=== PATIENT | female | born 1985 | race Caucasian/White ===

== ENCOUNTER 2018-01-07 19:56 | Inpatient (IN) | payer OTHER ==
[~2018-01-07] VITALS: Ht 165.1 cm; Wt 63.5 kg
[2018-01-07] MEDS ORDERED: PERCOGESIC 3251 EACH (20:19)
[2018-01-08] MEDS ORDERED: PERCOCET 5-3251 EACH PO (15:57)
[2018-01-08] MEDS ORDERED: COLACE100 MG PO (15:57)
== END 2018-01-08 20:16 | disposition home or self-care (01) | DRG 348 ==
LOC: ER 19:56 → SURH 21:45
PROVIDERS: Surgery
PROC: 3E0T3BZ Introduction of Anesthetic Agent into Peripheral Nerves and Plexi, Percutaneous Approach (ICD-10-PCS; 2018-01-08)
PROC: 06BY0ZC Excision of Hemorrhoidal Plexus, Open Approach (ICD-10-PCS; principal; 2018-01-08 12:00)
DX: K64.5 Perianal venous thrombosis (principal); K62.5 Hemorrhage of anus and rectum; E13.9 Other specified diabetes mellitus without complications; K62.89 Other specified diseases of anus and rectum